=== PATIENT | female | born 1930 | race Caucasian/White ===

== ENCOUNTER → 2016-12-06 13:04 | Outpatient (CLI) | payer MEDICARE | END | disposition home or self-care (01) | LOC: D.MAMMO 11:30 | DX: Z12.31 Encounter for screening mammogram for malignant neoplasm of breast (principal) ==

== ENCOUNTER → 2017-06-07 08:55 | Outpatient (CLI) | payer MEDICARE, OTHER | END | disposition home or self-care (01) | LOC: D.CT 08:55 | DX: G45.9 Transient cerebral ischemic attack, unspecified (principal) ==